=== PATIENT | male | born 1985 | race Two or more races ===

== ENCOUNTER 2018-07-12 12:16 | Emergency (ER) | payer OTHER ==
[~2018-07-12] VITALS: Ht 180.3 cm; Wt 100.2 kg
[2018-07-12 12:24] VITALS: Ht 180.3 cm; Wt 100.2 kg
[2018-07-12 15:29] LABS: CALCIUM 8.4 mg/dL (8.5-10.1); CARBON DIOXIDE 26.4 mmol/L (21-32); CHLORIDE SERUM 104 mmol/L (98-107); GFR1 > 60 mL/min; GLUCOSE SERUM 125 mg/dL (74-106); POTASSIUM SERUM 3.7 mmol/L (3.5-5.1); SODIUM SERUM 140 mmol/L (136-145)
[2018-07-12 15:33] LABS: ALKALINE PHOSPHATASE 128 U/L (46-116); ALT/SGPT 69 U/L (16-63); AST/SGOT 34 U/L (15-37); BILIRUBIN TOTAL 0.8 mg/dL (0.20-1.00); TOTAL PROTEIN, SERUM 7.5 g/dL (6.4-8.2)
[2018-07-12 15:36] LABS: BASOPHIL % 0.1 % (0-2); PLATELET COUNT 173 x10^3mcL (130-400); RED CELL DISTRIBUTION WIDTH 13.9 % (11.5-14.5)
[2018-07-12 16:40] VITALS: BP 103/67
== END 2018-07-12 16:40 | disposition home or self-care (01) ==
LOC: ED 12:16
PROVIDERS: Emergency Medicine
DX: B34.9 Viral infection, unspecified (principal)
CPT/HCPCS: 87804; J1885; J7030

== ENCOUNTER 2018-08-04 12:21 | Emergency (ER) | payer OTHER ==
[~2018-08-04] VITALS: Ht 180.3 cm; Wt 81.6 kg
[2018-08-04 12:30] VITALS: Ht 180.3 cm; Wt 81.6 kg
[2018-08-04 13:38] LABS: BASOPHIL % 0.3 % (0-2); PLATELET COUNT 178 x10^3mcL (130-400); RED CELL DISTRIBUTION WIDTH 13.8 % (11.5-14.5)
[2018-08-04 13:42] LABS: CALCIUM 8.7 mg/dL (8.5-10.1); CARBON DIOXIDE 26.1 mmol/L (21-32); CHLORIDE SERUM 103 mmol/L (98-107); CREATININE SERUM 1.1 mg/dL (0.7-1.3); GFR1 > 60 mL/min; GLUCOSE SERUM 129 mg/dL (74-106); POTASSIUM SERUM 3.8 mmol/L (3.5-5.1); SODIUM SERUM 138 mmol/L (136-145)
[2018-08-04 13:52] LABS: ALKALINE PHOSPHATASE 124 U/L (46-116); ALT/SGPT 80 U/L (16-63); AST/SGOT 43 U/L (15-37); BILIRUBIN TOTAL 0.7 mg/dL (0.20-1.00); TOTAL PROTEIN, SERUM 7.7 g/dL (6.4-8.2)
[2018-08-04 13:59] LABS: CK-MB 1.1 ng/mL (0-3.6)
[2018-08-04 16:28] VITALS: BP 94/60
== END 2018-08-04 16:28 | disposition home or self-care (01) ==
LOC: ED 12:21
PROVIDERS: Emergency Medicine
DX: J11.1 Influenza due to unidentified influenza virus with other respiratory manifestations (principal)
CPT/HCPCS: 83880; 87804; J7030; Q0092